=== PATIENT | female | born 1995 | race Caucasian/White ===

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

== ENCOUNTER → 2017-04-15 | Outpatient (CLI) | payer OTHER ==
[2017-04-15 17:56] LABS: BASO % 1.8 %; BASO ABS # 0.14 K/uL (0-0.2); COMPLETE YES; EOS % 4.6 %; HEMATOCRIT 43.7 % (37-47); IG% 0.3 %; LYMPH % 29.9 %; LYMPH ABS # 2.29 K/uL (1.2-3.4); MEAN CELL VOLUME 80.8 fL (80-100); MEAN CORPUSCULAR HEMOGLOBIN 28.3 pg (25-34); MEAN PLATELET VOLUME 9.4 fL (7.4-10.4); MONO % 4.6 %; NEUT % 58.8 %; PLATELET COUNT 423 K/uL (130-400); RED BLOOD COUNT 5.41 M/uL (4.2-5.4); WHITE BLOOD COUNT 7.66 K/uL (4.8-10.8)
[2017-04-20 07:23] LABS: CHLAMYDIA TRACH RNA*** NOT DETECTED (NOT DETECTED); GC (NEIS GONORRHOEAE)RNA** NOT DETECTED (NOT DETECTED)
[2017-04-20 10:09] LABS: HERPES SIMPLEX AB IGG-2 < 0.90 INDEX (< 0.90)
== END | disposition home or self-care (01) ==
LOC: C.LABMFLN 13:04
PROVIDERS: ATTEND Physician Assistant
DX: R53.83 Other fatigue (principal); Z72.51 High risk heterosexual behavior